=== PATIENT | male | born 2000 | race African-American/Black ===

== ENCOUNTER 2022-06-06 13:25 | Emergency (ER) | payer BC ==
[~2022-06-06] VITALS: Ht 172.7 cm; Wt 75.0 kg
[2022-06-06 14:10] VITALS: BP 139/66
== END 2022-06-06 17:46 | disposition left against medical advice (07) ==
LOC: ER 14:00
DX: Z53.21 Procedure and treatment not carried out due to patient leaving prior to being seen by health care provider (principal)